=== PATIENT | male | born 1990 | race Two or more races ===

== ENCOUNTER 2022-03-03 07:16 | Emergency (ER) | payer BC, OTHER ==
[~2022-03-03] VITALS: Ht 182.9 cm; Wt 110.0 kg
[2022-03-03 08:02] VITALS: BP 141/87
[2022-03-03] MEDS ORDERED: KETOROLAC TROMETH 60MG/2ML VIAL IM ONE (09:00)
[2022-03-03] MEDS ORDERED: TIZA6CAP15 PO (09:33)
[2022-03-03] MEDS ORDERED: IBUP800T27 PO (09:33)
[2022-03-03] MEDS ORDERED: CYCL-839 PO (12:18)
== END 2022-03-03 09:38 | disposition home or self-care (01) ==
LOC: ER 07:16
DX: G89.29 Other chronic pain (principal); M50.10 Cervical disc disorder with radiculopathy, unspecified cervical region
CPT/HCPCS: 72040; 96372; 99283; J1885

== ENCOUNTER 2022-07-21 06:16 | Inpatient (IN) | payer BC ==
[~2022-07-21] VITALS: Ht 182.9 cm; Wt 123.6 kg
[2022-07-21] MEDS: DOCUSATE SOD 100 MG CAP PO SCH ×2 (05:13→22:44)
[~2022-07-21 06:16] MED LIST: BIOT5000 PO; MISCTAB OR; MULT-1018 OR; ST JPOW XX
[2022-07-21] MEDS ORDERED: ROCURONIUM 10MG/ML 10ML VIAL IV ONE (06:54)
[2022-07-21] MEDS ORDERED: SUCCINYLCHOLINE CHLORIDE 20 MG/ML 10ML VIAL IV ONE (06:54)
[2022-07-21] MEDS ORDERED: ceFAZolin 1GM/50ML 100 ML IV ONE (06:55)
[2022-07-21] MEDS ORDERED: fentaNYL CITRATE 100 MCG/2 ML VL ONE (06:57)
[2022-07-21] MEDS ORDERED: MEPERIDINE HCL (50 MG/ML) 1 ML VIAL ONE (07:24)
[2022-07-21] MEDS ORDERED: MIDAZOLAM HCL 2MG/2ML 2ml VIAL (1mg/ml) ONE ×2 (07:25→07:54)
[2022-07-21] MEDS ORDERED: DexAMETHasone SOD PHOS 10MG/1ML VIAL INJ ONE (07:35)
[2022-07-21] MEDS ORDERED: PROPOFOL 10 MG/ML 20 ML IV ONE ×2 (07:35→08:32)
[2022-07-21] MEDS ORDERED: ACETAMINOPHEN 325 MG TAB PO PRN (08:15)
[2022-07-21] MEDS ORDERED: HYDROcodone-ACET 10/325MG TAB PO PRN (08:15)
[2022-07-21] MEDS ORDERED: DexAMETHasone SOD PHOS 10MG/1ML VIAL INJ IV ONE (08:15)
[2022-07-21] MEDS ORDERED: NITROGLYCERIN 0.4 MG SL TAB SL PRN (08:15)
[2022-07-21] MEDS ORDERED: ONDANSETRON HCL 4 MG/2 ML VIAL IV PRN ×2 (08:15→09:15)
[2022-07-21] MEDS ORDERED: MORPHINE SULFATE INJ 2 MG/ml SYRG IV PRN ×2 (08:15)
[2022-07-21] MEDS: ceFAZolin 1GM/50ML 50 ML IV SCH ×2 (08:15→16:15)
[2022-07-21] MEDS ORDERED: ONDANSETRON HCL 4 MG/2 ML VIAL ONE (08:32)
[2022-07-21] MEDS ORDERED: MORPHINE SULFATE 4 MG/ML SYR/VIAL IV PRN (09:15)
[2022-07-21] MEDS ORDERED: HYDROmorphone HCL 2 MG/ML VL/or syr IV PRN (09:15)
[2022-07-21] MEDS ORDERED: MIDAZOLAM HCL 2MG/2ML 2ml VIAL (1mg/ml) IV PRN (09:15)
[2022-07-21] MEDS ORDERED: LABETALOL HCL 5 MG/ML 4ML SYRINGE IV PRN (09:15)
[2022-07-21] MEDS ORDERED: ePHEDrine SULFATE 50 MG/ML AMP IV PRN (09:15)
[2022-07-21] MEDS ORDERED: SUGAMMADEX 200mg/2ml Vial (100MG/ML) IV ONE (10:18)
[2022-07-21] MEDS ORDERED: HYDROcodone-ACET 10/325MG TAB PO ONE (11:38)
[2022-07-21] MEDS ORDERED: HYDROcodone-ACET 5/325MG TAB PO ONE (11:38)
[2022-07-21 15:12] VITALS: BP 128/76
[2022-07-21] MEDS: CYCLOBENZAPRINE HCL 10 MG TAB PO SCH ×2 (15:14→22:44)
[2022-07-21] MEDS: D5W/SOD CHLO 0.9% 1,000 ML IV SCH ×2 (15:15→18:15)
[2022-07-21 16:57] VITALS: BP 120/74
[2022-07-21 20:30] VITALS: BP 122/77
[2022-07-21 22:00] VITALS: BP 122/77
[2022-07-22] MEDS: D5W/SOD CHLO 0.9% 1,000 ML IV SCH ×2 (01:19→14:05)
[2022-07-22 05:00] VITALS: BP 105/67
[2022-07-22] MEDS: CYCLOBENZAPRINE HCL 10 MG TAB PO SCH ×3 (05:59→23:24)
[2022-07-22 08:45] VITALS: BP 115/77
[2022-07-22] MEDS: DOCUSATE SOD 100 MG CAP PO SCH ×2 (10:11→23:23)
[2022-07-22 13:00] VITALS: BP 107/71
[2022-07-22 17:00] VITALS: BP 129/74
[2022-07-22] MEDS ORDERED: DexAMETHasone SOD PHOS 10MG/1ML VIAL INJ IV ONE (19:00)
[2022-07-22 22:00] VITALS: BP 133/83
[2022-07-23] VITALS (7 sets, daily range): BP systolic 121–137; BP diastolic 71–93
[2022-07-23] MEDS: D5W/SOD CHLO 0.9% 1,000 ML IV SCH ×3 (00:25→20:15)
[2022-07-23] MEDS: CYCLOBENZAPRINE HCL 10 MG TAB PO SCH ×3 (06:09→21:17)
[2022-07-23] MEDS: DOCUSATE SOD 100 MG CAP PO SCH ×2 (08:18→21:18)
[2022-07-23] MEDS ORDERED: CYCL-611 PO (16:57)
[2022-07-24 05:00] VITALS: BP 130/86
[2022-07-24] MEDS: CYCLOBENZAPRINE HCL 10 MG TAB PO SCH ×2 (05:36→13:48)
[2022-07-24] MEDS: D5W/SOD CHLO 0.9% 1,000 ML IV SCH ×2 (06:29→16:15)
[2022-07-24 09:00] VITALS: BP 137/93
[2022-07-24] MEDS: DOCUSATE SOD 100 MG CAP PO SCH (10:00)
== END 2022-07-24 18:00 | disposition home or self-care (01) | DRG 518 ==
LOC: SUR 06:16 → TELE 08:05 → TELE-WESTW 14:58
PROVIDERS: ADMIT Orthopaedic Surgery; ATTEND Orthopaedic Surgery
PROC: 01N10ZZ Release Cervical Nerve, Open Approach (ICD-10-PCS; 2022-07-21)
PROC: 00NW0ZZ Release Cervical Spinal Cord, Open Approach (ICD-10-PCS; 2022-07-21)
PROC: 4A11X4G Monitoring of Peripheral Nervous Electrical Activity, Intraoperative, External Approach (ICD-10-PCS; 2022-07-21)
PROC: 0RR30JZ Replacement of Cervical Vertebral Disc with Synthetic Substitute, Open Approach (ICD-10-PCS; principal; 2022-07-21 07:28)
DX: M48.02 Spinal stenosis, cervical region (principal); M50.123 Cervical disc disorder at C6-C7 level with radiculopathy; R29.818 Other symptoms and signs involving the nervous system
CPT/HCPCS: 72040; 76000; 86850; 86900; 86901; G0378; J0330; J0690; J1100; J2250; J2405; J2704; J7042